=== PATIENT | female | born 1995 | race Caucasian/White ===

== ENCOUNTER 2018-11-17 18:40 | Emergency (ER) | payer OTHER ==
[~2018-11-17] VITALS: Ht 152.4 cm; Wt 72.1 kg
[2018-11-17 19:20] VITALS: BP 139/76
--- NOTE | 2018-11-17 19:24 | NUR ---
PT AMBULATORY TO ER LOBBY W/ STEADY GAIT IN STABLE CONDITION.
--- NOTE | 2018-11-17 19:55 | NUR ---
pt ambulated to bed 9 with vss.
--- NOTE | 2018-11-17 20:00 | NUR ---
PATIENT CAME INTO ER WITH C/O PAIN IN THE EPIGASTRIC REGION. PT IS A/O X4. PT STATES SHE THINKS ITS DUE TO HER "ULCERS".PATIENT STATES PAIN OF 7/10 AT THIS TIME; VSS; PATIENT POSITIONED FOR COMFORT; HOB ELEVATED; BEDRAILS UP X2; BED DOWN. ER MD MADE AWARE OF PT STATUS.
--- NOTE | 2018-11-17 20:17 | NUR ---
Dr. Alvarez evaluating patient at bedside.
[2018-11-17] MEDS ORDERED: FAMOTIDINE 20 MG TAB PO ONE (20:20)
[2018-11-17] MEDS ORDERED: MAGNESIUM HYDROXIDE 2400 MG/30 ML UDC PO ONE (20:20)
[2018-11-17 20:33] LABS: BASOPHILS % (AUTO) 0.3 % (0.0-2.0); EOSINOPHILS % (AUTO) 0.2 % (0.0-4.0); HEMATOCRIT 37.6 % (36-48); HEMOGLOBIN 12.4 g/dL (12.0-16.0); LYMPHOCYTES # (AUTO) 2.2 K/uL (2.5-16.5); LYMPHOCYTES % (AUTO) 19.6 % (20.5-51.1); MEAN CORPUSCULAR HEMOGLOBIN 30 pg (27-31); MEAN CORPUSCULAR HGB CONC 33 g/dL (33-37); MEAN CORPUSCULAR VOLUME 90.8 fL (80-94); MONOCYTES # (AUTO) 0.8 K/uL (0.8-1.0); MONOCYTES % (AUTO) 7.2 % (1.7-9.3); NEUTROPHILS # (AUTO) 8.1 K/uL (1.8-7.7); NEUTROPHILS % (AUTO) 72.7 % (42.2-75.2); PLATELET COUNT (AUTO) 280 K/uL (140-450); RED BLOOD CELL COUNT(AUTO) 4.15 MIL/uL (4.20-5.40); RED CELL DISTRIBUTION WIDTH 13.3 % (11.6-13.7); WHITE BLOOD COUNT (AUTO) 11.2 K/uL (4.8-10.8)
[2018-11-17 20:46] LABS: APPEARANCE,URINE HAZY (CLEAR); BILIRUBIN,URINE NEGATIVE (NEGATIVE); BLOOD, URINE TRACE-I (NEGATIVE); COLOR,URINE YELLOW (YELLOW); LEUKOCYTE ESTERASE ,URINE TRACE (NEGATIVE); NITRITE, URINE NEGATIVE (NEGATIVE); UGLUCOSE NEGATIVE (NEGATIVE)
[2018-11-17 21:01] LABS: ANION GAP 14.9 (8-16); CARBON DIOXIDE 26.4 mmol/L (21-32); POTASSIUM 3.3 mmol/L (3.5-5.1)
[2018-11-17 21:07] LABS: ALBUMIN 3.6 g/dL (3.4-5.0); TOTAL BILIRUBIN 0.2 mg/dL (0.0-1.0)
[2018-11-17 21:13] LABS: RBC,URINE 3-10 (FEW) /HPF (0-5)
[2018-11-17 21:20] VITALS: BP 128/74
--- NOTE | 2018-11-17 21:20 | NUR ---
Patient discharged with v/s stable. Written and verbal after care instructions given and explained. Patient alert, oriented and verbalized understanding of instructions. Ambulatory with steady gait. All questions addressed prior to discharge. ID band removed. Patient advised to follow up with PMD. Rx of MIRALAX, PRILOSEC, AND MACROBID given. Patient educated on indication of medication including possible reaction and side effects. Opportunity to ask questions provided and answered.
== END 2018-11-17 21:20 | disposition home or self-care (01) ==
LOC: MED 18:40
DX: K29.70 Gastritis, unspecified, without bleeding (principal); K59.00 Constipation, unspecified; N39.0 Urinary tract infection, site not specified; E87.6 Hypokalemia
CPT/HCPCS: 36415; 80053; 81001; 81025; 83690; 85025; 87086; 99283

== ENCOUNTER 2019-10-03 18:09 | Emergency (ER) | payer OTHER ==
[~2019-10-03] VITALS: Ht 152.4 cm; Wt 81.2 kg
[2019-10-03 18:45] VITALS: BP 131/77
[2019-10-03 20:52] VITALS: BP 131/77
== END 2019-10-03 20:52 | disposition home or self-care (01) ==
LOC: MED 18:09
DX: J20.9 Acute bronchitis, unspecified (principal); J45.909 Unspecified asthma, uncomplicated
CPT/HCPCS: 71045; 81025; 87804; 99284; Q0092